=== PATIENT | male | born 1965 | race Caucasian/White ===

== ENCOUNTER 2020-11-29 11:09 | Emergency (ER) | payer BC, SELFPAY ==
[~2020-11-29] VITALS: Ht 170.2 cm; Wt 81.6 kg
[2020-11-29 11:19] VITALS: BP_SYST 128
[2020-11-29 14:03] VITALS: BP_SYST 128
== END 2020-11-29 14:04 | disposition home or self-care (01) ==
LOC: SED 11:09
DX: U07.1 COVID-19 (principal); E11.9 Type 2 diabetes mellitus without complications
CPT/HCPCS: 71045; 87426; 99284; C9803; U0003; 36415